=== PATIENT | male | born 1975 | race Caucasian/White ===

== ENCOUNTER 2019-08-09 06:48 | Emergency (ER) | payer MEDICAID ==
[~2019-08-09] VITALS: Ht 175.3 cm; Wt 63.5 kg
[2019-08-09 06:58] VITALS: BP 117/65
== END 2019-08-09 08:03 | disposition left against medical advice (07) ==
LOC: ER 06:48 → EDBD 06:48 → ER 08:03
DX: M25.551 Pain in right hip (principal); Z53.21 Procedure and treatment not carried out due to patient leaving prior to being seen by health care provider; W18.39XA Other fall on same level, initial encounter; Y93.39 Activity, other involving climbing, rappelling and jumping off; Y92.89 Other specified places as the place of occurrence of the external cause; Y99.8 Other external cause status